=== PATIENT | male | born 1950 | race Two or more races ===

== ENCOUNTER 2023-10-03 11:26 | Emergency (ER) | payer OTHER ==
[~2023-10-03] VITALS: Ht 182.9 cm; Wt 95.3 kg
[2023-10-03] MEDS ORDERED: TAMS0.4C PO (11:45)
[2023-10-03] MEDS ORDERED: PEPCID AC20 MG PO (11:46)
[2023-10-03] MEDS ORDERED: ONDANSETRON HCL 2 MG/ML VIAL IV ONE (14:30)
[2023-10-03] MEDS ORDERED: FAMOTIDINE/PF 20 MG/2 ML VIAL IV ONE (14:30)
[2023-10-03] MEDS ORDERED: ONDANSETRON HCL 2 MG/ML VIAL ONE (15:10)
[2023-10-03] MEDS ORDERED: FAMOTIDINE/PF 20 MG/2 ML VIAL ONE (15:10)
[2023-10-03 15:48] LABS: PH,URINE 5.5 (5.0-8.0); URINE APPEARANCE Cloudy; URINE BILIRRUBIN Negative (NEGATIVE); URINE BLOOD Negative; URINE COLOR Yellow; URINE GLUCOSE Negative (NEGATIVE); URINE KETONE Negative (NEGATIVE); URINE LEUKOCYTE Negative; URINE NITRATE Negative; URINE PROTEIN Negative (NEGATIVE)
[2023-10-03 15:49] LABS: URINE BACTERIA 15.1 uL (0.0-1933); URINE RBC 3.2 uL (0.0-20.8); URINE WBC 2.3 uL (0.0-23.2)
[2023-10-03 15:49] LABS: HEMATOCRIT 41.5 % (39.0-48.0); HEMOGLOBIN 14.5 g/dL (13-16.00); MEAN CELL VOLUME 87.5 fL (80.0-100.00); MEAN CORPUSCULAR HEMOGLOBIN 30.7 pg (27.00-32.0); PLATELET COUNT 185 K/uL (150-450); RED BLOOD COUNT 4.74 M/uL (4.00-6.00); RED CELL DISTRIBUTION WIDTH 13.2 % (11.5-14.5)
[2023-10-03 15:54] LABS: INR 1.01; PARTIAL THROMBOPLASTIN TIME 30.9 SECONDS (22.0-34.0); PROTHROMBIN TIME 10.6 SECONDS (9.0-11.5)
[2023-10-03 16:00] LABS: ALBUMIN 3.7 gm/dL (3.4-5.0); BILIRUBIN TOTAL 0.88 mg/dL (0.3-1.2); CALCIUM 9.1 mg/dL (8.5-10.1); CREATININE SERUM 1.1 mg/dL (0.70-1.30); GFR 65.62; GLOBULINA 3.5 G/DL (2.4-3.5); POTASSIUM 4.03 mEq/L (3.5-5.1); TOTAL PROTEIN 7.2 gm/dL (6.4-8.2)
[2023-10-03] MEDS ORDERED: KETOROLAC TROMETHAMINE 30 MG VIAL IV ONE (17:45)
[2023-10-03] MEDS ORDERED: KETOROLAC TROMETHAMINE 30 MG VIAL ONE (17:46)
== END 2023-10-03 17:48 | disposition home or self-care (01) ==
LOC: ER 11:27
PROVIDERS: Nurse Practitioner Family
DX: R07.89 Other chest pain (principal); M94.0 Chondrocostal junction syndrome [Tietze]; Z20.822 Contact with and (suspected) exposure to COVID-19; I10 Essential (primary) hypertension
CPT/HCPCS: 36415; 71046; 93005; 96365; 99283; J1885; J2405; J3490